=== PATIENT | male | born 1950 | race Caucasian/White ===

== ENCOUNTER 2020-08-27 23:31 | Inpatient (IN) | payer BC, MEDICARE ==
[2020-08-28] MEDS ORDERED: HYDROcodone/Acetaminophen 5/325 mg Tablet PO PRN (00:09)
[2020-08-28] MEDS ORDERED: Ondansetron PF 4 MG/2 ML Vial IVP PRN (00:09)
[2020-08-28] MEDS ORDERED: Dextrose 5% in Water 1,000 ML IV PRN (00:09)
[2020-08-28] MEDS ORDERED: Zolpidem Tartrate 5 MG TAB PO PRN (00:09)
[2020-08-28] MEDS ORDERED: Dextrose 50% Abboject 50 ML SYRINGE SLOW IVP PRN (00:09)
[2020-08-28] MEDS ORDERED: Calcium Carbonate 500 MG ChewTAB PO PRN (00:09)
[2020-08-28] MEDS ORDERED: Senokot S 8.6-50 MG TAB PO PRN (00:09)
[2020-08-28] MEDS ORDERED: Sodium Chloride 0.9% 500 ML IV SCH (00:15)
[2020-08-28 00:17] VITALS: BMI 23.5
[2020-08-28] MEDS ORDERED: Morphine 2 MG/ML VIAL SLOW IVP PRN (00:20)
[2020-08-28] MEDS: Sodium Chloride 0.9% 1,000 ML IV SCH ×2 (00:46→17:28)
[2020-08-28] MEDS: HumaLOG 300 UNITS/3 ML VIAL SC PRN ×5 (01:35→21:01)
[2020-08-28] MEDS: Enoxaparin Sodium 80 MG/0.8 ML SYRINGE SC SCH ×2 (02:22→13:12)
[2020-08-28] MEDS ORDERED: Enoxaparin Sodium 40 MG/0.4 ML SYRINGE SC SCH (09:00)
[2020-08-28] MEDS ORDERED: Lantus 1000 UNITS/10 ML VIAL ONE (09:26)
[2020-08-28 09:32] LABS: Hemoglobin A1c 11.5 % (4.0-6.0)
[2020-08-28] MEDS: Cefepime 2 GM in Sodium Chloride 0.9% 100 ML IVPB SCH ×2 (09:44→20:53)
[2020-08-28] MEDS: Famotidine 20 MG TAB PO SCH ×2 (09:44→20:53)
[2020-08-28] MEDS: Lantus 1000 UNITS/10 ML VIAL SC SCH ×2 (09:44→21:00)
[2020-08-28] MEDS ORDERED: VANCOMYCIN 1.25 GM/250 ML BAG 1.25 GM in Premix Bag 1 BAG IVPB SCH (10:00)
[2020-08-28] MEDS ORDERED: Vancomycin 1 GM in Premix Bag 1 BAG IVPB SCH (11:00)
[2020-08-28] MEDS: VANCOMYCIN 1.25 GM/250 ML BAG 1.25 GM in Premix Bag 1 BAG IVPB SCH (13:12)
[2020-08-28] MEDS: Acetaminophen 325 MG TAB PO PRN (17:25)
[2020-08-29] MEDS: VANCOMYCIN 1.25 GM/250 ML BAG 1.25 GM in Premix Bag 1 BAG IVPB SCH ×2 (00:09→13:01)
[2020-08-29] MEDS: HumaLOG 300 UNITS/3 ML VIAL SC PRN ×6 (00:20→21:11)
[2020-08-29] MEDS: Enoxaparin Sodium 80 MG/0.8 ML SYRINGE SC SCH ×2 (02:00→13:03)
[2020-08-29 06:15] LABS: Anion Gap 11 mmol/L (10-20); BUN (Urea Nitrogen) 15 mg/dL (8.4-25.7); CRP (Inflammatory) 16.22 mg/dL (= or < 0.5); Calc. Creatinine Clearance 102 mL/min (70-130); Calcium 8.5 mg/dL (7.8-10.44); Carbon Dioxide 24 mmol/L (23-31); Chloride 106 mmol/L (98-107); Glucose 157 mg/dL (83-110); Sodium 137 mmol/L (136-145)
[2020-08-29] MEDS: Sodium Chloride 0.9% 1,000 ML IV SCH ×3 (06:15→16:30)
[2020-08-29 07:37] LABS: #Monocytes 0.9 10x3/uL (0.0-1.1); #Neutrophils 5.6 10x3/uL (1.5-8.4); %Basophils 0.5 % (0.0-2.0); %Eosinophils 0.5 % (0.0-6.0); %Lymphocytes 17.4 % (18.0-47.0); %Monocytes 11.1 % (0.0-10.0); Hemoglobin 10.4 g/dL (13.5-17.5); Mean Corpuscular HGB CONC 33.3 g/dL (32.0-36.0); Mean Corpuscular Hemoglobin 31.2 pg (27.0-33.0); Mean Corpuscular Volume 93.7 fl (81.2-95.1); Mean Platelet Volume 9.1 fl (7.4-10.4); Platelet Count 182 10x3/uL (150-450); RBC Distribution Width 12.6 % (11.5-14.5); Red Blood Cell (RBC) Count 3.33 10x6/uL (4.32-5.72); White Blood Cell (WBC) Count 7.9 10x3/uL (3.5-10.5)
[2020-08-29] MEDS: Cefepime 2 GM in Sodium Chloride 0.9% 100 ML IVPB SCH ×2 (08:53→21:09)
[2020-08-29] MEDS: Lantus 1000 UNITS/10 ML VIAL SC SCH ×2 (08:53→21:10)
[2020-08-29] MEDS: Famotidine 20 MG TAB PO SCH ×2 (08:53→21:10)
[2020-08-29 12:35] LABS: Vancomycin, Trough 9.9 ug/mL
[2020-08-29] MEDS: Acetaminophen 325 MG TAB PO PRN (18:22)
[2020-08-30] MEDS: Vancomycin 1.5 GRAM/300 ML BAG 1.5 GM in Premix Bag 1 BAG IVPB SCH ×2 (01:32→13:03)
[2020-08-30] MEDS: Enoxaparin Sodium 80 MG/0.8 ML SYRINGE SC SCH ×2 (01:33→13:04)
[2020-08-30] MEDS: Cefepime 2 GM in Sodium Chloride 0.9% 100 ML IVPB SCH (09:32)
[2020-08-30] MEDS: Famotidine 20 MG TAB PO SCH (09:32)
[2020-08-30] MEDS: Lantus 1000 UNITS/10 ML VIAL SC SCH (09:33)
[2020-08-30] MEDS: Sodium Chloride 0.9% 1,000 ML IV SCH (13:04)
[2020-08-30] MEDS: HumaLOG 300 UNITS/3 ML VIAL SC PRN (13:36)
[2020-08-30 15:30] VITALS: BP 152/80; TEMP 97.9
== END 2020-08-30 18:08 | disposition home or self-care (01) | DRG 872 ==
LOC: CSHERS 23:31 → CSHTELE 23:42 → UNDOADMIN 23:42 → CSHTELE 08-28 00:09
PROVIDERS: ADMIT Student in an Organized Health Care Education/Training Program; ATTEND Internal Medicine
DX: A41.9 Sepsis, unspecified organism (principal); L03.115 Cellulitis of right lower limb; I82.411 Acute embolism and thrombosis of right femoral vein; S81.851A Open bite, right lower leg, initial encounter; W55.01XA Bitten by cat, initial encounter; E11.22 Type 2 diabetes mellitus with diabetic chronic kidney disease; N18.2 Chronic kidney disease, stage 2 (mild); Z86.718 Personal history of other venous thrombosis and embolism; Z79.4 Long term (current) use of insulin; E11.65 Type 2 diabetes mellitus with hyperglycemia; E11.51 Type 2 diabetes mellitus with diabetic peripheral angiopathy without gangrene; D63.1 Anemia in chronic kidney disease
CPT/HCPCS: 36415; 36416; 80048; 80202; 83036; 85025; 86140; J0692; J1650; J1815; J2270; J3370; J3490; J7050